=== PATIENT | male | born 1945 | race Caucasian/White ===

== ENCOUNTER 2016-05-29 10:46 | Inpatient (IN) | payer MEDICARE ==
[2016-05-29 12:42] VITALS: BMI 27.1
[2016-05-29] MEDS ORDERED: HYDROcodone/Acetaminophen 5/325 mg Tablet PO PRN (12:46)
[2016-05-29] MEDS: Cephalexin 250 MG CAP PO SCH ×3 (15:47→20:40)
[2016-05-29] MEDS: Gabapentin 300 MG CAP PO SCH ×2 (15:47→20:40)
[2016-05-29] MEDS: Metoprolol Tartrate 25 MG TAB PO SCH (20:40)
[2016-05-29] MEDS: Levemir Flexpen 100 UNITS/ML PEN SC SCH (21:28)
[2016-05-29] MEDS: HYDROcodone/Acetaminophen 5/325 mg Tablet PO PRN (22:51)
[2016-05-30] MEDS: Metoprolol Tartrate 25 MG TAB PO SCH ×2 (08:58→21:18)
[2016-05-30] MEDS: Gabapentin 300 MG CAP PO SCH ×3 (08:58→21:18)
[2016-05-30] MEDS: Cephalexin 250 MG CAP PO SCH ×4 (08:58→21:18)
[2016-05-30] MEDS: HYDROcodone/Acetaminophen 5/325 mg Tablet PO PRN ×2 (13:18→20:06)
[2016-05-30] MEDS: Levemir Flexpen 100 UNITS/ML PEN SC SCH (21:18)
[2016-05-31] MEDS ORDERED: Dextrose 50% Abboject 50 ML SYRINGE IVP PRN (00:39)
[2016-05-31] MEDS ORDERED: Dextrose 5% in Water 1,000 ML IV PRN (00:39)
[2016-05-31] MEDS ORDERED: Pramipexole Di-HCl 0.25 MG TAB PO SCH (00:45)
[2016-05-31] MEDS: HYDROcodone/Acetaminophen 5/325 mg Tablet PO PRN ×3 (02:16→22:02)
[2016-05-31] MEDS: Gabapentin 300 MG CAP PO SCH ×3 (09:03→21:57)
[2016-05-31] MEDS: Cephalexin 250 MG CAP PO SCH ×4 (09:04→21:57)
[2016-05-31] MEDS: Metoprolol Tartrate 25 MG TAB PO SCH ×2 (09:04→21:57)
[2016-05-31] MEDS: HumaLOG 300 UNITS/3 ML VIAL SC PRN ×2 (18:31→21:56)
[2016-05-31] MEDS ORDERED: Docusate 100 MG CAP PO PRN (20:37)
[2016-05-31] MEDS ORDERED: Cephalexin 250 MG CAP ONE (20:49)
[2016-05-31] MEDS: Levemir Flexpen 100 UNITS/ML PEN SC SCH (21:56)
[2016-05-31] MEDS: Pramipexole Di-HCl 0.25 MG TAB PO SCH (21:57)
[2016-06-01] MEDS: Cephalexin 250 MG CAP PO SCH ×4 (09:38→20:42)
[2016-06-01] MEDS: Metoprolol Tartrate 25 MG TAB PO SCH ×2 (09:39→20:45)
[2016-06-01] MEDS: Gabapentin 300 MG CAP PO SCH ×3 (09:39→20:43)
[2016-06-01] MEDS: Polyethylene Glycol 3350 17 GM Packet PO SCH (09:41)
[2016-06-01] MEDS: HYDROcodone/Acetaminophen 5/325 mg Tablet PO PRN (20:44)
[2016-06-01] MEDS: Levemir Flexpen 100 UNITS/ML PEN SC SCH (20:51)
[2016-06-01] MEDS: HumaLOG 300 UNITS/3 ML VIAL SC PRN (20:52)
[2016-06-01] MEDS: Pramipexole Di-HCl 0.25 MG TAB PO SCH (20:52)
[2016-06-02] MEDS: Cephalexin 250 MG CAP PO SCH ×4 (09:16→20:36)
[2016-06-02] MEDS: Gabapentin 300 MG CAP PO SCH ×3 (09:17→20:37)
[2016-06-02] MEDS: Polyethylene Glycol 3350 17 GM Packet PO SCH (09:18)
[2016-06-02] MEDS: Metoprolol Tartrate 25 MG TAB PO SCH ×2 (09:18→20:36)
[2016-06-02] MEDS: HYDROcodone/Acetaminophen 5/325 mg Tablet PO PRN (20:37)
[2016-06-02] MEDS: Pramipexole Di-HCl 0.25 MG TAB PO SCH (20:46)
[2016-06-02] MEDS: Levemir Flexpen 100 UNITS/ML PEN SC SCH (21:03)
[2016-06-02] MEDS: HumaLOG 300 UNITS/3 ML VIAL SC PRN (21:04)
[2016-06-03] MEDS: Cephalexin 250 MG CAP PO SCH ×2 (08:53→13:46)
[2016-06-03] MEDS: Gabapentin 300 MG CAP PO SCH ×3 (08:53→20:41)
[2016-06-03] MEDS: Metoprolol Tartrate 25 MG TAB PO SCH ×2 (08:53→20:41)
[2016-06-03] MEDS: Polyethylene Glycol 3350 17 GM Packet PO SCH (08:54)
[2016-06-03] MEDS: HumaLOG 300 UNITS/3 ML VIAL SC PRN ×2 (17:40→20:40)
[2016-06-03] MEDS: Levemir Flexpen 100 UNITS/ML PEN SC SCH (20:40)
[2016-06-03] MEDS: HYDROcodone/Acetaminophen 5/325 mg Tablet PO PRN (20:41)
[2016-06-03] MEDS: Pramipexole Di-HCl 0.25 MG TAB PO SCH (20:41)
[2016-06-04] MEDS: Gabapentin 300 MG CAP PO SCH ×3 (08:32→21:02)
[2016-06-04] MEDS: Metoprolol Tartrate 25 MG TAB PO SCH ×2 (08:32→21:02)
[2016-06-04] MEDS: Polyethylene Glycol 3350 17 GM Packet PO SCH (08:32)
[2016-06-04] MEDS: HumaLOG 300 UNITS/3 ML VIAL SC PRN (17:37)
[2016-06-04] MEDS: HYDROcodone/Acetaminophen 5/325 mg Tablet PO PRN (21:02)
[2016-06-04] MEDS: Pramipexole Di-HCl 0.25 MG TAB PO SCH (21:02)
[2016-06-04] MEDS: Levemir Flexpen 100 UNITS/ML PEN SC SCH (21:04)
[2016-06-05 06:10] VITALS: BP 138/78; TEMP 98.2
[2016-06-05] MEDS: Gabapentin 300 MG CAP PO SCH (07:59)
[2016-06-05] MEDS: Metoprolol Tartrate 25 MG TAB PO SCH (08:00)
[2016-06-05] MEDS: Polyethylene Glycol 3350 17 GM Packet PO SCH (08:00)
--- NOTE | 2016-06-05 11:49 | DIS ---
DATE OF ADMISSION: 05/29/2016 DATE OF DISCHARGE: 06/05/2016 ADMISSION DIAGNOSES: 1. Status post lumbar laminectomy. 2. Insulin-dependent diabetes mellitus. 3. Hypertension. 4. Gastroesophageal reflux disease. DISCHARGE DIAGNOSES: 1. Status post lumbar laminectomy. 2. Insulin-dependent diabetes mellitus. 3. Hypertension. 4. Gastroesophageal reflux disease. PROCEDURES: None. HOSPITAL COURSE: 71-year-old male who presented to our facility to participate with physical therapy/occupational therapy, status post a 05/25/[address] Sanchez including re-exploration spinal fusion, removal of hardware L3- L4, lumbar laminectomy, posterolateral arthrodesis and pedicle screw instrumentation at L4-L5. The patient was able to participate with PT/OT successfully over his week-long stay without any notable setbacks. His usual medications were continued with no new issues. His bandaged site was monitored with no signs or symptoms of infection throughout his stay. The patient will follow up with Dr. Sanchez today. He does have a walker at home to aid in ambulation. This morning he reports to be feeling well and is notably hemodynamically stable and appropriate for discharge. DISPOSITION: The patient will be discharged today to his home where he lives at [facility]. He will follow up with Dr. Sanchez today and may follow up with his primary care physician, Dr. Cristo Barone, next week. DISCHARGE MEDICATIONS: Metformin 850 mg p.o. b.i.d., Pramipexole 0.25 mg 2 tabs p.o. at bedtime, Protonix 40 mg p.o. daily, Levemir 50 units subcutaneous at bedtime, Lopressor 25 mg p.o. b.i.d., [place] 5/325 1-2 tabs p.o. q.6 hours p.r.n., gabapentin 300 mg 2 tabs p.o. t.i.d., aspirin 81 mg p.o. daily. MTDD
== END 2016-06-05 08:45 | disposition home or self-care (01) | DRG 561 ==
LOC: BURMED 12:21
PROVIDERS: ADMIT Family Medicine; ATTEND Family Medicine
DX: Z47.89 Encounter for other orthopedic aftercare (principal); E11.9 Type 2 diabetes mellitus without complications; I10 Essential (primary) hypertension; Z48.811 Encounter for surgical aftercare following surgery on the nervous system; Z79.4 Long term (current) use of insulin; K21.9 Gastro-esophageal reflux disease without esophagitis; Z98.1 Arthrodesis status; R53.1 Weakness
CPT/HCPCS: 36416; G8987-GO-CJ; G8988-GO-CI; J1815

== ENCOUNTER 2016-06-22 15:20 | Inpatient (IN) | payer MEDICARE ==
[2016-06-22] MEDS ORDERED: Acetaminophen 325 MG TAB PO PRN (17:56)
[2016-06-22] MEDS ORDERED: Guaifenesin DM 100-10/5 ML UDCUP PO PRN (17:57)
[2016-06-22] MEDS ORDERED: Docusate 100 MG CAP PO PRN (17:57)
[2016-06-22] MEDS ORDERED: HYDROcodone/Acetaminophen 5/325 mg Tablet PO PRN (17:58)
[2016-06-22] MEDS ORDERED: HYDROcodone/Acetaminophen 10/325 mg Tablet PO PRN (17:59)
[2016-06-22 18:27] VITALS: BMI 26.5
[2016-06-22] MEDS: Pramipexole Di-HCl 0.25 MG TAB PO SCH (21:07)
[2016-06-22] MEDS: Gabapentin 300 MG CAP PO SCH (21:07)
[2016-06-22] MEDS: Metoprolol Tartrate 25 MG TAB PO SCH (21:07)
[2016-06-22] MEDS: cefTRIAXone\\ROCEPHIN 2 GM in Sodium Chloride 0.9% 100 ML IVPB SCH (21:09)
[2016-06-22] MEDS: Levemir Flexpen 100 UNITS/ML PEN SC SCH (21:16)
[2016-06-23] MEDS: Enoxaparin Sodium 30 MG/0.3 ML SYRINGE SC SCH (05:20)
[2016-06-23 06:26] LABS: #Basophils 0.1 thou/uL (0.0-0.2); #Lymphocytes 0.8 thou/uL (1.20-3.40); #Monocytes 0.8 thou/uL (0.11-0.59); #Neutrophils 5.8 thou/uL (1.40-6.50); %Basophils 1.7 % (0.0-1.0); %Eosinophils 11.7 % (0.0-10.0); %Monocytes 9.7 % (0.0-10.0); Mean Platelet Volume 5.9 fL (7.4-10.4); Red Blood Cell (RBC) Count 3.59 mill/uL (4.70-6.10); White Blood Cell (WBC) Count 8.5 thou/uL (4.8-10.8)
[2016-06-23 07:02] LABS: ALT (SGPT) 20 U/L (0-55); AST (SGOT) 21 U/L (5-34); Alkaline Phosphatase 108 U/L (40-150); Anion Gap 14 mmol/L (10-20); BUN (Urea Nitrogen) 10 mg/dL (8.4-25.7); Bilirubin, Total 0.4 mg/dL (0.2-1.2); Calc. Creatinine Clearance 121 mL/min (70-130); Calcium 9.3 mg/dL (7.8-10.44); Carbon Dioxide 27 mmol/L (23-31); Chloride 103 mmol/L (98-107); Estimated GFR-MDRD Greater than 90; Globulin 2.6 g/dL (2.4-3.5); Protein, Total 5.9 g/dL (5.8-8.1)
[2016-06-23] MEDS: Tamsulosin HCl 0.4 MG CAP PO SCH (09:21)
[2016-06-23] MEDS: Gabapentin 300 MG CAP PO SCH ×3 (09:21→21:29)
[2016-06-23] MEDS: Metoprolol Tartrate 25 MG TAB PO SCH ×2 (09:22→21:29)
[2016-06-23] MEDS: Levemir Flexpen 100 UNITS/ML PEN SC SCH ×2 (09:32→21:30)
[2016-06-23] MEDS: cefTRIAXone\\ROCEPHIN 2 GM in Sodium Chloride 0.9% 100 ML IVPB SCH (17:41)
[2016-06-23] MEDS: Pramipexole Di-HCl 0.25 MG TAB PO SCH (21:29)
[2016-06-24] MEDS: Enoxaparin Sodium 30 MG/0.3 ML SYRINGE SC SCH (06:10)
[2016-06-24 06:30] VITALS: BP 128/74; TEMP 98.7
[2016-06-24] MEDS: Gabapentin 300 MG CAP PO SCH (08:46)
[2016-06-24] MEDS: Tamsulosin HCl 0.4 MG CAP PO SCH (08:46)
[2016-06-24] MEDS: Metoprolol Tartrate 25 MG TAB PO SCH (08:47)
[2016-06-24] MEDS: Levemir Flexpen 100 UNITS/ML PEN SC SCH (08:49)
--- NOTE | 2016-06-25 07:14 | DIS ---
DATE OF ADMISSION: 06/23/2016 DATE OF DISCHARGE: 06/24/2016 ADMISSION DIAGNOSES: Postoperative lumbar spinal abscess, physical deconditioning, insulin-dependen t diabetes mellitus, hypertension, chronic low back pain, and gastroesophageal reflux disease. DISCHARGE DIAGNOSES: Postoperative lumbar spinal abscess, physical deconditioning, insulin-dependen t diabetes mellitus, hypertension, chronic low back pain, and gastroesophageal reflux disease. PROCEDURES: None. HOSPITAL COURSE: This is a 71-year-old male who presented to our facility in order to continue IV a ntibiotics via PICC line along with PT, OT. This was secondary to developing a post-procedure lumba r spinal abscess; prior procedure included a reexploration, spinal fusion, and removal of hardware, L3-L4 lumbar laminectomy, posterolateral arthrodesis, and pedicle screw instrumentation at L4-L5 via Dr. Sanchez on 05/25/2016. The patient presented to [facility] on 06/17/2016 with si gns and symptoms of infection. He was subsequently admitted and taken to the operating room for a w ashout; Infectious Disease was consulted, who initially started the patient on IV Rocephin and vanco mycin. However, after cultures were conclusive for group B strep, he was transitioned to Rocephin o nly which was to be received for the next 6 weeks via PICC line. His care was then transitioned to our facility as stated previously; however, the patient did request to transition to [facility] in order to be closer to his , so that she may visit him. During his very short admi ssion here, he continued to receive his daily home medications in conjunction with the advised IV Ro cephin; he also received routine wound care to the prior surgical site to the lumbar spine. He had no complications during his stay and is appropriate for discharge to the facility of his choice. DISPOSITION: The patient will be transferred to [facility] today for a continued car e. DISCHARGE MEDICATIONS: Include his home medications, metformin 850 mg p.o. b.i.d., pramipexole 0.5 mg at bedtime, Protonix 40 mg p.o. daily, Levemir 20 units a.m. and 25 units at bedtime, Lopressor 2 5 mg p.o. b.i.d., [place] 5/325 1-2 tabs p.o. q.6 hours p.r.n., gabapentin 300 mg 2 tabs p.o. t.i.d., and aspirin 81 mg p.o. daily. We will continue and complete a 6-week course of Rocephin via his PIC C line.
[2016-08-01] MEDS ORDERED: Cephalexin 250 MG CAP PO SCH (09:00)
== END 2016-06-24 10:10 | DRG 949 ==
LOC: BURMED 17:49
PROVIDERS: ADMIT Family Medicine; ATTEND Family Medicine
DX: T84.63XD Infection and inflammatory reaction due to internal fixation device of spine, subsequent encounter (principal); L02.212 Cutaneous abscess of back [any part, except buttock and flank]; E11.9 Type 2 diabetes mellitus without complications; B95.1 Streptococcus, group B, as the cause of diseases classified elsewhere; I10 Essential (primary) hypertension; G89.29 Other chronic pain; Z79.2 Long term (current) use of antibiotics; K21.9 Gastro-esophageal reflux disease without esophagitis; Z98.1 Arthrodesis status; Z79.4 Long term (current) use of insulin
CPT/HCPCS: 36415; 36416; 80053; 85025; 86140; A4216; G8978-GP-CI; G8979-GP-CI; G8980-GP-CI; G8987-GO-CI; G8988-GO-CI; G8989-GO-CI; J0696; J1642; J1650; J1815; J7050